=== PATIENT | female | born 1955 | race Caucasian/White ===

== ENCOUNTER 2021-02-05 07:18 | Outpatient (REF) | payer BC, SELFPAY ==
--- NOTE | ~2021-02-05 | MR_ITS ---
EXAMINATION: MR BRAIN WITHOUT AND WITH CONTRAST CLINICAL INFORMATION: Orgasmic headaches. COMPARISON: None. TECHNIQUE: Multiplanar, multisequence imaging of the brain was performed before and after the intravenous administration of 6 mL of gadolinium. FINDINGS: No diffusion abnormalities are identified to suggest an acute infarct. The ventricles are normal in size. No mass effect or midline shift is seen. No brain parenchymal signal abnormality is noted. No extra-axial fluid collections are seen. The brainstem and cerebellum are normal. There is no abnormal parenchymal or leptomeningeal enhancement. 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 The gradient refocused acquisition is normal. The craniovertebral junction, marrow signal, and midline structures are normal. The major intracranial flow voids at the level of the [place] are preserved. The dural venous sinus flow voids are maintained. The paranasal sinuses are well aerated. The orbits and pituitary axis structures are grossly normal. There is a mild amount of fluid in the left mastoid air cells. Moderate spondylosis partially visualized at the C3-C4 level with hypertrophic facet arthropathy. MR/MR head/brain wo/w con IMPRESSION: Normal MRI of the brain. No acute process. Moderate spondylosis partially visualized at C3-C4 level.
[2021-02-05 08:01] LABS: Blood Urea Nitrogen 10 mg/dL (9-16); Estimated Glomerular Filt Rate > 60
== END 2021-02-05 07:19 | disposition home or self-care (01) ==
LOC: HO.MRI 07:18
PROVIDERS: PCP Internal Medicine; Visit Provider Psychiatry & Neurology Neurology
DX: G44.82 Headache associated with sexual activity (principal)
CPT/HCPCS: 36415; 70553; 82565; 84520; A9585